=== PATIENT | male | born 1945 | race Caucasian/White ===

== ENCOUNTER 2016-08-13 14:11 | Emergency (ER) | payer MEDICARE ==
[~2016-08-13] VITALS: Ht 182.9 cm; Wt 95.5 kg
[2016-08-13 14:13] VITALS: BP 140/89; PULSE 72; RESP 20; TEMP 95; O2SAT 95
[2016-08-13 14:31] VITALS: TEMP 98.2
[2016-08-13] MEDS ORDERED: TAMS0.4C4 PO (14:43)
[2016-08-13] MEDS ORDERED: LEVO-86 PO (14:43)
[2016-08-13] MEDS ORDERED: VITA100064 PO (14:43)
[2016-08-13] MEDS ORDERED: AMLO5TAB2 PO (14:43)
--- NOTE | 2016-08-13 15:15 | PD ---
HPI Chief Complaint: Pain: Acute or Chronic Time Seen by Provider: 15:04 Travel History International Travel<30 days: No Contact w/Intl Traveler<30days: No Traveled to known affect area: No History of Present Illness HPI 70-year-old male presents emergency Department with complaint of right-sided mid back pain 2 days. Reports he was sitting on the toilet and twisted wrong and had onset of back pain. Says the pain may radiate little bit to his right buttocks. Denies new or recent traumatic injury. Has history of chronic back pain. History of laminectomy and other back surgeries since 1999. Denies encopresis, incontinence, saddle anesthesias. Denies fever, vomiting, abdominal pain. Denies paresthesias, loss of sensation, decreased range of motion, decreased strength to bilateral lower extremities. Denies dysuria, hematuria. Denies IV drug use. Reports current skin cancer. Pain is worse on movement and palpation. Has taken an old prescription of hydrocodone for pain with good relief of symptoms. Patient is requesting an MRI. Has no other medical complaints. Allergies to Dilaudid. No other modifying factors or associated signs and symptoms. PFSH Past Medical History Arthritis: Yes Cancer: Yes (thyroid, skin) Diminished Hearing: No (some hearing loss) Hepatitis: Yes (c) Hypertension: Yes Radiation Therapy: Yes (at 16 yrs old ) Tetanus Vaccination: < 5 Years Influenza Vaccination: No ?: Not Past Surgical History Appendectomy: Yes Tonsillectomy: Yes Other Surgery: Yes (thyroidectomy, colon resection) Social History Alcohol Use: No Tobacco Use: No Substance Use: No Allergies-Medications (Allergen,Severity, Reaction): Coded Allergies: Dilaudid (Verified Adverse Reaction, Intermediate, n/v, 08/13/16) Reported Meds & Prescriptions Reported Meds & Active Scripts Active Medrol Dosepak (Methylprednisolone) 4 Mg Dspk 4 Mg PO DIRECTED Per Pharmacist direction [place] (Hydrocodone-Acetaminophen) 10-325 Mg Tab 1 Tab PO Q6H PRN Soma (Carisoprodol) 350 Mg Tab 350 Mg PO QID PRN Reported Tamsulosin (Tamsulosin HCl) 0.4 Mg Cap 0.4 Mg PO HS Vitamin D (Cholecalciferol) 1,000 Unit Tab 1,000 Units PO DAILY Synthroid (Levothyroxine Sodium) 137 Mcg Tab 137 Mcg PO DAILY Amlodipine (Amlodipine Besylate) 5 Mg Tab 5 Mg PO DAILY Review of Systems Except as stated in HPI: all other systems reviewed are Neg Physical Exam Narrative GENERAL: Well-nourished, well-developed male patient, in no acute distress; afebrile, nontoxic-appearing SKIN: Warm and dry. HEAD: Atraumatic. Normocephalic. EYES: Pupils equal and round. No scleral icterus. No injection or drainage. ENT: Mucosa pink and moist. Airway patent. NECK: Trachea midline. CARDIOVASCULAR: Regular rate. RESPIRATORY: No accessory muscle use. GASTROINTESTINAL: Round. MUSCULOSKELETAL: Bilateral lower extremities supple and non-tense with 2+ pedal pulses and sensory intact; with full range of motion and 5/5 strength. 2 + DTRs bilaterally. Active dorsiflexion and extension of bilateral feet. Right straight leg raise is positive for low back pain. Ambulatory in room with guarded gait to right lower extremity. Sitting up in bed at 90. No obvious deformities. No clubbing. No cyanosis. No edema. BACK: No midline midline point tenderness on palpation of the lumbar spine. Tenderness on palpation of right iliosacral area. No obvious deformities. NEUROLOGICAL: Awake and alert. Oriented 3. No obvious cranial nerve deficits. Motor grossly within normal limits. Normal speech. Moves all extremities. 5/5 strength to all extremities. Sensory intact. PSYCHIATRIC: Appropriate mood and affect; insight and judgment normal. Data Data Last Documented VS Vital Signs Date Time Temp Pulse Resp B/P Pulse Ox O2 Delivery O2 Flow Rate FiO2 08/13/16 14:31 98.2 08/13/16 14:13 72 20 140/[address] Lumb Spine W/O Contrast (08/13/16 ) Morphine Inj (Morphine Inj) (08/13/16 15:45) Ondansetron Odt (Zofran Odt) (08/13/16 15:45) MDM Medical Decision Making Medical Screen Exam Complete: Yes Emergency Medical Condition: Yes Medical Record Reviewed: Yes Differential Diagnosis Low back strain, sciatica, acute exacerbation of chronic low back pain Narrative Course 70-year-old male requesting an MRI of his low back after twisting wrong on the toilet 2 days ago and having onset of back pain. He has history of chronic low back pain with history of laminectomy and other back surgeries since 1999. Denies encopresis, incontinence, saddle anesthesias. Denies IV drug use. Reports current skin cancer. Denies fever, vomiting. Patient is ambulatory in the room with decorticate the right lower extremity. He has no midline point tenderness on palpation of the lumbar spine. I discussed outpatient imaging with the patient and he requested to talk to her attending physician, Dr. Garza. 1516: Dr. Garza evaluated the patient and recommended outpatient follow-up for MRI. Dr. Garza agreed to do CT scan of the lumbar spine. CT lumbar spine ordered. Dr. Garza ordered morphine and Zofran. 1645: CT lumbar spine concludes: Last 24 hours Impressions Lumbar Spine CT 08/13/16 0000 Signed Impressions: Service Date/Time: Saturday, August 13, 2016 15:41 - CONCLUSION: 1. Mild spinal stenosis and moderate bilateral foraminal narrowing at L1-2. 2. Moderate bilateral foraminal narrowing at L2-3 and L5-S1 without spinal stenoses at these levels. 3. Degenerative changes and scoliosis of the thoracolumbar spine. 4. Extensive posterior fusion hardware extending from L2 through L5. 5. Uncomplicated sigmoid diverticulosis. 6. Possible 14 mm right renal cyst. Sukh Watts MD Findings of the CT scan were discussed and the patient was provided a copy of the CT report. Dr. Garza prescribed [place], Soma, and Medrol Dosepak for home. Instructed patient to follow-up with neurosurgeon. Patient verbalizes understanding and agreement with treatment plan. Patient is medically cleared and stable for discharge. Discussed reasons to return to the emergency department. Instructed patient to follow up with primary care provider. Patient agrees with treatment plan. The patients vital signs are stable and the patient is stable for outpatient follow-up and treatment. Patient discharged home, stable and in no acute distress. Diagnosis Primary Impression: Acute exacerbation of chronic low back pain Referrals: Neurosurgeon Primary Care Physician Patient Instructions: Acute Low Back Pain (ED), Chronic Back Pain (ED), General Instructions, Low Back Strain (ED), Sciatica (ED) Additional Instructions: Tylenol or ibuprofen as directed and as needed for pain Soma as prescribed and as needed for muscle spasms Heating pad and/or ice to affected area to reduce pain Avoid aggravating activities; increase activity as tolerated Follow-up with primary care provider Return to emergency department immediately with worsening of symptoms Med/Other Pt SpecificInfo: Prescription(s) given Scripts Methylprednisolone Dosepak (Medrol Dosepak)4 Mg Dspk4 Mg PO DIRECTED #1 DSPK Ref 0 Per Pharmacist direction Prov:Jose Garza MD 08/13/16 Hydrocodone-Acetaminophen ([place])10-325 Mg Tab1 Tab PO Q6H PRN (PAIN) #30 TAB Ref 0 Prov:Jose Garza MD 08/13/16 Carisoprodol (Soma)350 Mg [id number] Mg PO QID PRN (PAIN) #60 TAB Ref 0 Prov:Jose Garza MD 08/13/16 Disposition: 01 DISCHARGE HOME Condition: Stable Genesis Bradley August 13, 2016 15:15
[2016-08-13] MEDS ORDERED: ONDANSETRON ODT 4 MG TAB PO ONE (15:45)
[2016-08-13] MEDS ORDERED: MORPHINE SULFATE 4 MG/ML INJ IM ONE (15:45)
--- NOTE | 2016-08-13 16:40 | RADRPT ---
EXAM DATE/TIME: 08/13/2016 15:41 [facility] COMPARISON: No previous studies available for comparison. INDICATIONS : Back pain. RADIATION DOSE: 26.98 CTDIvol (mGy) MEDICAL HISTORY : Hepatitis C. Carcinoma, not otherwise specified. SURGICAL HISTORY : Appendectomy. Laminectomy. ENCOUNTER: Initial ACUITY: 1 day PAIN SCALE: 4/10 LOCATION: Bilateral lumbar. TECHNIQUE: Volumetric scanning of the lumbar spine was performed. Multiplanar reconstructions in the sagittal, coronal and oblique axial planes were performed. Using automated exposure control and adjustment of the mA and/or kV according to patient size, radiation dose was kept as low as reasonably achievable t o obtain optimal diagnostic quality images. FINDINGS: Extensive posterior lumbar fusion has been performed from L2 through L5. There is no acute compressi on fracture or spondylolisthesis of the lumbar spine. Disc implants are noted at L3-4 and L4-5. The re is severe degenerative disc disease at L1-2 and L2-3. Mild scoliosis of the thoracolumbar spine i s noted. L1-2: There is mild circumferential spinal stenosis and moderate bilateral foraminal narrowing secondary to diffuse disc osteophyte complex, facet joint hypertrophy and ligamentous laxity. No focal disc golden iation is noted. L2-3: There is no significant spinal stenosis. Minimal diffuse disc osteophyte complex is noted. Facet hy pertrophy is noted bilaterally. Moderate bilateral foraminal narrowing is noted. L3-4: There is no significant spinal stenosis or neural foraminal narrowing. Facet joint hypertrophy is no palak bilaterally. L4-5: There is no significant spinal stenosis or neural foraminal narrowing. Facet joint hypertrophy is no palak bilaterally. L5-S1: There is no spinal stenosis. Moderate bilateral foraminal narrowing is noted secondary to diffuse di sc osteophyte complex and facet joint hypertrophy at this level. No focal disc herniation is noted. Miscellaneous: Uncomplicated sigmoid diverticulosis is noted. There is a 14 mm low density lesion within the right kidney consistent with possible cyst. CONCLUSION: 1. Mild spinal stenosis and moderate bilateral foraminal narrowing at L1-2. 2. Moderate bilateral foraminal narrowing at L2-3 and L5-S1 without spinal stenoses at these levels. 3. Degenerative changes and scoliosis of the thoracolumbar spine. 4. Extensive posterior fusion hardware extending from L2 through L5. 5. Uncomplicated sigmoid diverticulosis. 6. Possible 14 mm right renal cyst. Sukh Watts MD on August 13, 2016 at 16:00 Board Certified Radiologist. This report was verified electronically.
[2016-08-13] MEDS ORDERED: HYDR-3366 PO (16:53)
[2016-08-13] MEDS ORDERED: SOMA350T PO (16:53)
[2016-08-13] MEDS ORDERED: MEDR4PAK PO (16:54)
--- NOTE | 2016-08-13 16:54 | PD ---
Physical Exam Narrative Patient was seen and examined with my personal assistant. Data Data Last Documented VS Vital Signs Date Time Temp Pulse Resp B/P Pulse Ox O2 Delivery O2 Flow Rate FiO2 08/13/16 14:31 98.2 08/13/16 14:13 72 20 140/[address] Lumb Spine W/O Contrast (08/13/16 ) Morphine Inj (Morphine Inj) (08/13/16 15:45) Ondansetron Odt (Zofran Odt) (08/13/16 15:45) MDM Supervised Visit with KIMBERLI: Yes Diagnosis Primary Impression: Acute exacerbation of chronic low back pain Patient Instructions: General Instructions Additional Instruction: Take medications as needed for pain. Follow-up with personal physician and orthopedist and neurosurgeon. Return if worse. Med/Other Pt SpecificInfo: Prescription(s) given Scripts Methylprednisolone Dosepak (Medrol Dosepak)4 Mg Dspk4 Mg PO DIRECTED #1 DSPK Ref 0 Per Pharmacist direction Prov:Jose Garza MD 08/13/16 Hydrocodone-Acetaminophen ([place])10-325 Mg Tab1 Tab PO Q6H PRN (PAIN) #30 TAB Ref 0 Prov:Jose Garza MD 08/13/16 Carisoprodol (Soma)350 Mg [id number] Mg PO QID PRN (PAIN) #60 TAB Ref 0 Prov:Jose Garza MD 08/13/16 Disposition: 01 DISCHARGE HOME Condition: Stable Jose Garza MD August 13, 2016 16:54
== END 2016-08-13 17:14 | disposition home or self-care (01) ==
LOC: NEPK 14:11
DX: M54.5 Low back pain (principal); G89.29 Other chronic pain; I10 Essential (primary) hypertension
CPT/HCPCS: 72131; 99284